=== PATIENT | male | born 1955 | race Hispanic/Latino ===

== ENCOUNTER 2019-04-02 10:54 | Outpatient (CLI) | payer OTHER ==
--- NOTE | 2019-04-02 19:54 | RAD ---
LEFT SHOULDER THREE VIEWS: 04/02/19 No fracture or dislocation was seen. The AC joint is normal in width, but there is bony spurring arou nd the joint. Some calcifications are suggested near the greater tubercle which is probably indicati ve of calcific tendonitis. There is a little bony irregularity along the inferior lip of the glenoid fossa which could be either due to an old injury or degenerative change. IMPRESSION: 1. 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 2. Degenerative changes of the AC joint. Possible minor degenerative change versus old trauma to the inferior lip of the glenoid. POS: HOME
== END 2019-04-02 10:55 | disposition home or self-care (01) ==
LOC: BURRAD 10:54
PROVIDERS: ATTEND Physician Assistant
DX: M25.512 Pain in left shoulder (principal); M19.012 Primary osteoarthritis, left shoulder